=== PATIENT | female | born 1965 | race Hispanic/Latino ===

== ENCOUNTER 2021-05-04 10:52 | Outpatient (CLI) | payer OTHER ==
--- NOTE | 2021-05-04 15:23 | Magnetic Resonance Report ---
MRA HEAD WITHOUT CONTRAST HISTORY: Headache COMPARISON: none TECHNIQUE: Routine MRA of the head performed. 3-D/MIP reformats postprocessed. CONTRAST: none FINDINGS: MRA HEAD: OVERVIEW: There is no evidence of intracranial stenosis or large vessel occlusion. There is no eviden ce of aneurysm or other vascular malformation. Intracranial vertebral arteries: Normal and symmetrical vertebral arteries both contribute to the bas ilar artery origin. Basilar artery: Basilar artery has an unremarkable appearance. Posterior cerebral arteries: Normal and symmetrical appearing posterior cerebral arteries are identif ied. Intracranial internal carotid arteries: No significant abnormality. Anterior cerebral arteries: Bilaterally symmetrical A1 segments of the anterior cerebral arteries are demonstrated. No abnormalities are seen along the course of the A2 segments or visualized pericallos al branches. Middle cerebral arteries: Normal and symmetrical M1 segments are demonstrated bilaterally. No abnorma lities are seen on evaluation of the insular or opercular branches of the middle cerebral arteries. Additional findings: None. Whole brain sequences were included in this examination. Ventricles and cortical sulci are normal in size and shape. There is no mass effect. No evidence of intracranial hemorrhage or extra-axial fluid collection is seen. No areas of abnormal brain parenchymal signal intensity are identified. No abnorm alities are identified at the craniocervical junction. Evaluation of the orbits reveals no abnormalit y. Paranasal sinuses and mastoid air cells are free from inflammatory change. IMPRESSION: 1. No significant abnormalities are identified on MRA head. Signer Name: Jacob Lyles MD Signed: 05/04/2021 3:11 PM Workstation Name: [id number]
== END 2021-05-04 10:53 | disposition home or self-care (01) ==
LOC: MRI 10:52
DX: R51.9 Headache, unspecified (principal)
CPT/HCPCS: 70544